=== PATIENT | female | born 1985 | race Caucasian/White ===

== ENCOUNTER 2016-10-02 15:59 | Emergency (ER) | payer MEDICAID ==
[2014-12-11 13:09] VITALS: BMI 42.5
[~2016-10-02 15:59] MED LIST: HYDROCODONE-APA1 TAB PO; IBUPROFEN600 MG PO; PRENATAL COMPLE1 TAB PO
== END 2016-10-02 19:08 | disposition home or self-care (01) ==
LOC: D.ER 15:59
DX: J01.90 Acute sinusitis, unspecified (principal); F17.200 Nicotine dependence, unspecified, uncomplicated